=== PATIENT | female | born 1945 | race Caucasian/White ===

== ENCOUNTER 2017-01-27 08:52 | Emergency (ER) | payer OTHER ==
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
[2017-01-27] MEDS ORDERED: ALTEPLASE 100 MG/100 ML VIAL IV ONE ×3 (08:58→09:41)
[2017-01-27 09:07] VITALS: RESP 18
[2017-01-27] MEDS ORDERED: NS 100 ML BAG IV ONE (09:16)
--- NOTE | 2017-01-27 09:16 | CPEKG ---
Heart Rate: 81 RR Interval: 741 P-R Interval: 168 QRSD Interval: 96 QT Interval: 384 QTC Interval: 446 P [place]: 72 QRS [place]: 22 T Wave [place]: 61 EKG Severity - NORMAL ECG - EKG Impression: SINUS RHYTHM Electronically Signed By: Jess Maharaj 27-Jan-2017 15:34:55
[2017-01-27 09:18] LABS: % IMMATURE GRANULYOCYTES 0.3 % (0.0-1.1); ABSOLUTE IMMATURE GRANULOCYTES 0.02 10^3/uL (0.00-0.10); ADD DIFF? NO; ADD MORPH? NO; ADD SCAN? NO; ATYPICAL LYMPHOCYTE FLAG 10 (0-99); FRAGMENT RBC FLAG 0 (0-99); HEMATOCRIT 42.4 % (38.0-47.0); HEMOGLOBIN 14.1 g/dL (12.6-16.3); LEFT SHIFT FLG 0 (0-99); LIPEMIA HEMOLYSIS FLAG 80 (0-99); MEAN CELL HEMOGLOBIN 33.6 pg (27.9-34.1); MEAN CELL HEMOGLOBIN CONCENTR. 33.3 g/dL (32.4-36.7); MEAN PLATELET VOLUME 8.4 fL (8.7-11.7); PLATELET CLUMPS FLAG 0 (0-99); PLATELET COUNT 274 10^3/uL (150-400); RED CELL DISTRIBUTION WIDTH 14.4 % (11.5-15.2)
[2017-01-27 09:20] VITALS: BP 147/92; TEMP 97.3
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
[2017-01-27 09:24] LABS: APTT 23.7 SEC (23.0-38.0); INR 1.05 (0.83-1.16); PROTIME(PATIENT) 13.6 SEC (12.0-15.0)
[2017-01-27 09:28] VITALS: PULSE 84; O2SAT 95
[2017-01-27] MEDS ORDERED: NS 50 ML IV ONE (09:41)
[2017-01-27] MEDS ORDERED: ALTEPLASE 1 MG/ML SYR IV ONE (09:41)
[2017-01-27 09:47] LABS: ANION GAP 9 mEq/L (8-16); CALCIUM 9.4 mg/dL (8.5-10.4); CARBON DIOXIDE 24 mEq/l (22-31); CHLORIDE 106 mEq/L (97-110); CREATININE 0.7 mg/dL (0.6-1.0); GLOMERULAR FILTRATION RATE > 60; GLUCOSE 77 mg/dL (70-100); SODIUM 139 mEq/L (134-144)
[2017-01-27 09:58] LABS: TROPONIN I 0.027 ng/mL (0-0.034)
== END 2017-01-27 09:34 | disposition short-term general hospital (02) ==
LOC: EDUNIT#
DX: I63.59 Cerebral infarction due to unspecified occlusion or stenosis of other cerebral artery (principal); H51.8 Other specified disorders of binocular movement
CPT/HCPCS: 37195; 70450; 93005; 99291; J2997; 82947-QW

== ENCOUNTER → 2017-04-04 | Outpatient (CLI) | payer OTHER | LOC: FIMAGING 10:07 | PROVIDERS: ATTEND Family Medicine | DX: Z12.31 Encounter for screening mammogram for malignant neoplasm of breast (principal) | CPT/HCPCS: G0202 ==

== ENCOUNTER 2017-04-11 12:12 | Emergency (ER) | payer OTHER ==
[2017-04-11 12:19] VITALS: O2SAT 96
[2017-04-11 12:52] LABS: COLOR YELLOW; LEUKOCYTE ESTERASE,URINE NEGATIVE (NEGATIVE); NITRITE,URINE NEGATIVE (NEGATIVE)
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
[2017-04-11] MEDS ORDERED: METOCLOPRAMIDE 10 MG/2 ML VIAL IVP ONE (13:23)
[2017-04-11] MEDS ORDERED: KETOROLAC 30 MG/1 ML SDV IVP ONE (13:23)
[2017-04-11 13:41] LABS: % IMMATURE GRANULYOCYTES 0.4 % (0.0-1.1); ABSOLUTE IMMATURE GRANULOCYTES 0.02 10^3/uL (0.00-0.10); ADD DIFF? NO; ADD MORPH? NO; ADD SCAN? NO; ATYPICAL LYMPHOCYTE FLAG 20 (0-99); FRAGMENT RBC FLAG 0 (0-99); HEMATOCRIT 36.7 % (38.0-47.0); HEMOGLOBIN 12.4 g/dL (12.6-16.3); LEFT SHIFT FLG 0 (0-99); LIPEMIA HEMOLYSIS FLAG 90 (0-99); MEAN CELL HEMOGLOBIN CONCENTR. 33.8 g/dL (32.4-36.7); MEAN CELL VOLUME 97.6 fL (81.5-99.8); MEAN PLATELET VOLUME 8.4 fL (8.7-11.7); PLATELET CLUMPS FLAG 0 (0-99); PLATELET COUNT 257 10^3/uL (150-400); RED BLOOD CELL COUNT 3.76 10^6/uL (4.18-5.33); RED CELL DISTRIBUTION WIDTH 12.7 % (11.5-15.2)
[2017-04-11] MEDS ORDERED: IOPAMIDOL (ISOVUE 370) 100 ML BTL IV ONE (13:46)
[2017-04-11 14:09] LABS: ALANINE AMINOTRANSFERASE 35 IU/L (9-52); ALKALINE PHOSPHATASE 55 IU/L (38-126); ANION GAP 8 mEq/L (8-16); ASPARTATE AMINOTRANSFERASE 33 IU/L (14-46); BILIRUBIN,TOTAL 0.4 mg/dL (0.1-1.4); BILIRUBIN-CONJUGATED 0.3 mg/dL (0.0-0.5); BILIRUBIN-UNCONJUGATED 0.1 mg/dL (0.0-1.1); CALCIUM 9.3 mg/dL (8.5-10.4); CARBON DIOXIDE 25 mEq/l (22-31); CHLORIDE 104 mEq/L (97-110); CREATININE 0.6 mg/dL (0.6-1.0); GLOMERULAR FILTRATION RATE > 60; GLUCOSE 81 mg/dL (70-100); MAGNESIUM 1.8 mg/dL (1.6-2.3); SODIUM 137 mEq/L (134-144); TOTAL PROTEIN 6.5 g/dL (6.3-8.2); TROPONIN I < 0.012 ng/mL (0-0.034)
[2017-04-11 15:05] VITALS: BP 118/75; PULSE 77; RESP 18; TEMP 97.9
== END 2017-04-11 15:05 | disposition home or self-care (01) ==
DX: R51 Headache (principal); T37.8X5A Adverse effect of other specified systemic anti-infectives and antiparasitics, initial encounter; Z79.82 Long term (current) use of aspirin
CPT/HCPCS: 70450; 70496; 96374; 96375; 99285; J1885; J2765; Q9967; 82947-QW

== ENCOUNTER 2017-08-04 07:50 | Day surgery (SDC) | payer OTHER ==
[2017-08-04] MEDS ORDERED: BACITRACIN IRRIGATION/NS 50,000 UNITS/1,000 ML BTL IRR ONE (08:04)
[2017-08-04] MEDS ORDERED: DIAZEPAM 5 MG TAB PO ONE (08:04)
[2017-08-04] MEDS ORDERED: diphenhydrAMINE 25 MG CAP PO ONE (08:04)
[2017-08-04] MEDS ORDERED: NS 1,000 ML IV ONE (08:04)
[2017-08-04] MEDS ORDERED: LIDOCAINE 1% 300 MG/30 ML SDV SC ONE (08:15)
--- NOTE | 2017-08-04 08:57 | PDGENHP ---
History and Physical History and Physical: Patient was seen 07-21-17 with history of CVA and PFO noted. No changes to physical exam have been noted since last office visit. No cardiovascular complaints were voiced today. No sedation is planned for this procedure (local anesthetic only) Risks and benefits of the procedure were discussed with the patient.
--- NOTE | 2017-08-04 09:22 | SUROPNOTE ---
[facility] Operative Report - Surgery PROCEDURE: LINQ IMPLANT INDICATION: CVA WITH CONCERNS OF pAF PROCEDURE DETAILS: Risks and benefits of procedure were discussed with the patient. Consent was signed. Outpatient office note was reviewed. Lidocaine was used for local anesthetic to the left 1st through 4th intercostal spaces. A #12 blade was used for initial incision and the provided blade was used for proper width and breath of incision. The delivery rail system was used to implant the device without complications. LINQ implanted was SN: [id number]. Four kadie were used to close the incision. No complications noted. Patient tolerated the procedure without difficulty Outpatient follow up is scheduled.
== END 2017-08-04 09:56 | disposition home or self-care (01) ==
LOC: FCATH 07:50
PROVIDERS: ATTEND Internal Medicine Cardiovascular Disease
PROC: 0JH632Z Insertion of Monitoring Device into Chest Subcutaneous Tissue and Fascia, Percutaneous Approach (ICD-10-PCS; principal; 2017-08-04)
DX: Z86.73 Personal history of transient ischemic attack (TIA), and cerebral infarction without residual deficits (principal); Q21.1 Atrial septal defect; F32.9 Major depressive disorder, single episode, unspecified; E03.9 Hypothyroidism, unspecified; K21.9 Gastro-esophageal reflux disease without esophagitis; Z79.82 Long term (current) use of aspirin; Z82.49 Family history of ischemic heart disease and other diseases of the circulatory system; Z82.3 Family history of stroke
CPT/HCPCS: C1764

== ENCOUNTER → 2018-06-08 | Outpatient (CLI) | payer OTHER | LOC: FIMAGING 10:19 | PROVIDERS: ATTEND Family Medicine | DX: Z12.31 Encounter for screening mammogram for malignant neoplasm of breast (principal) ==